=== PATIENT | female | born 1985 | race Caucasian/White ===

== ENCOUNTER 2021-07-27 13:58 | Emergency (ER) | payer OTHER ==
[~2021-07-27 13:58] MED LIST: COLACE 100MG C100 MG PO; IBUPROFEN600 MG PO; NORCO 10-325 T1 EACH PO
[2021-07-27 14:41] LABS: HEMOGLOBIN 12.6 gm/dl (12.3-15.3); RED BLOOD COUNT 4.71 M/UL (4.00-5.10); WHITE BLOOD COUNT 10.1 K/UL (4.5-11.0)
[2021-07-27 15:00] LABS: BUN/CREATININE RATIO 12 (0-10)
[2021-07-27] MEDS ORDERED: IBUPROFEN600 MG PO (17:30)
== END 2021-07-27 18:10 | disposition home or self-care (01) ==
LOC: ER1 13:58
PROVIDERS: Nurse Practitioner
DX: N93.9 Abnormal uterine and vaginal bleeding, unspecified (principal); Z90.49 Acquired absence of other specified parts of digestive tract
CPT/HCPCS: 76830; 80053; 84703; 85025; 85610; 99284